=== PATIENT | female | born 2000 | race Caucasian/White ===

== ENCOUNTER 2018-04-07 21:26 | Emergency (ER) | payer OTHER ==
[2018-04-07] MEDS ORDERED: DIPH,PERTUS(ACELL)TETVAC-LF 0.5 ML VIAL IM ONE (21:44)
[2018-04-07] MEDS ORDERED: LIDOCAINE 1% INJ 10MG/ML (20 ML MDV) SQ ONE (21:49)
--- NOTE | 2018-04-07 22:02 | XR ---
EXAMINATION TYPE: XR foot complete LT DATE OF EXAM: 04/07/2018 COMPARISON: NONE HISTORY: Foot pain TECHNIQUE: 3 views FINDINGS: There is mild hallux valgus. I see no fracture nor dislocation. Joint spaces are normal. IMPRESSION: Negative left foot exam.
--- NOTE | 2018-04-07 22:51 | ED ---
General Adult HPI - General Chief complaint: Wound/Laceration Stated complaint: Foot Lac Time Seen by Provider: 04/07/18 21:35 Source: patient, family Mode of arrival: ambulatory Limitations: no limitations - History of Present Illness Initial comments: 17-year-old female since to the emergency department for a chief complaint of laceration of the left foot. Patient states she was carrying bottles and dropped one on her foot. The glass broke and cut the top of her foot. Patient denies pain with walking on the foot. Patient states tetanus is not up-to- date. Patient denies any other injuries or falling. Patient denies any fevers or chills at home.Patient has no other complaints at this time including shortness of breath, chest pain, abdominal pain, nausea or vomiting, headache, or visual changes. - Related Data Home Medications Medication Instructions Recorded Confirmed No Known Home Medications 04/07/18 04/07/18 Allergies Allergy/AdvReac Type Severity Reaction Status Date / Time No Known Allergies Allergy Verified 04/07/18 21:38 Review of Systems ROS Statement: Those systems with pertinent positive or pertinent negative responses have been documented in the HPI. ROS Other: All systems not noted in ROS Statement are negative. Past Medical History Past Medical History: No Reported History History of Any Multi-Drug Resistant Organisms: None Reported Past Surgical History: No Surgical Hx Reported Past Psychological History: No Psychological Hx Reported Smoking Status: Never smoker Past Alcohol Use History: None Reported Past Drug Use History: None Reported General Exam Limitations: no limitations General appearance: alert, in no apparent distress Head exam: Present: atraumatic, normocephalic, normal inspection Eye exam: Present: normal appearance ENT exam: Present: normal exam, mucous membranes moist Neck exam: Present: normal inspection, full ROM. Absent: tenderness, meningismus, lymphadenopathy Respiratory exam: Present: normal lung sounds bilaterally. Absent: respiratory distress, wheezes, rales, rhonchi, stridor Cardiovascular Exam: Present: regular rate, normal rhythm, normal heart sounds. Absent: systolic murmur, diastolic murmur, rubs, gallop, clicks Extremities exam: Present: full ROM (Full range of motion of digits in the left foot. Full range motion of the left ankle.), tenderness (Tenderness to the laceration site.), normal capillary refill (Refill less than 2 seconds and pedal pulse 2+ in the left lower extremity.), other (Sensation intact and left lower extremities. There is a 2 cm laceration extending across the dorsal aspect of the left foot.). Absent: joint swelling (No swelling or ecchymosis or erythema noted in the left lower extremity.), calf tenderness (No calf tenderness. Negative Homans sign.) Course Vital Signs 04/07/18 21:35 Temperature 97 F L Pulse Rate 102 H Respiratory 20 Rate Blood Pressure 143/83 O2 Sat by Pulse 100 Oximetry Procedures - Procedures Initial comment: Body area: left dorsal foot Laceration length: 2 cm Foreign bodies: no foreign bodies Tendon involvement: none Nerve involvement: none Vascular damage: no Anesthesia: local infiltration Local anesthetic: 2 mL 1% lidocaine Preparation: Patient was prepped and draped in the usual sterile fashion. Irrigation solution: saline Irrigation method: saline jet lavage Skin closure:5-0 Ethilon using sterile technique Number of sutures: 6 Technique: interupted Dressing: antibiotic ointment/ gauze Patient tolerance: Patient tolerated the procedure well with no immediate complications. Medical Decision Making - Medical Decision Making 17-year-old female presents to the emergency determine for chief complaint of laceration to the left dorsal foot. Patient dropped a glass on it today. Full range of motion in the foot and digits of the foot. Neurovascular intact. Patient was given tetanus in the emergency department. X-ray shows no acute fracture or dislocation. 6 sutures were applied to the wound. Effort was made to approximate tattoo lines. It was then cleaned and bacitracin and gauze was applied. She was educated on return precautions including those for infection. She will follow up with primary care in 1-2 days and return in 7-10 days to have sutures removed. Disposition Clinical Impression: Laceration Disposition: HOME SELF-CARE Condition: Good Instructions: Care For Your Stitches (ED), Laceration (ED) Additional Instructions: Please monitor for signs infection such as spreading redness, streaking redness , drainage, or fever and return if these occur. Return if you have any other worsening symptoms or additional concerns. Rest ice and elevate the foot. Return in 7-10 days to have sutures removed. Follow up with primary care in 1- 2 days. Is patient prescribed a controlled substance at d/c from ED?: No Referrals: Felix Alvarado MD [Primary Care Provider] - 1-2 days Time of Disposition: :50
[2018-04-07 23:02] VITALS: BP 139/74; PULSE 90; RESP 18; TEMP 98
== END 2018-04-07 23:01 | disposition home or self-care (01) ==
LOC: EC 21:26
DX: S91.312A Laceration without foreign body, left foot, initial encounter (principal); Z23 Encounter for immunization; W25.XXXA Contact with sharp glass, initial encounter; Y93.89 Activity, other specified; Y92.009 Unspecified place in unspecified non-institutional (private) residence as the place of occurrence of the external cause
CPT/HCPCS: 99283; 12001; 90471; 73630; 90715; J2001

== ENCOUNTER 2021-05-09 18:20 | Emergency (ER) | payer OTHER ==
[2021-05-09 18:32] VITALS: BP 119/75; PULSE 83; RESP 16; TEMP 98.2
--- NOTE | 2021-05-09 19:14 | ED ---
Skin/Abscess/FB HPI - General Chief complaint: Skin/Abscess/Foreign Body Stated complaint: ripped off toenail Source: patient, RN notes reviewed Mode of arrival: ambulatory Limitations: no limitations - History of Present Illness Initial comments: 20-year-old white female, alert and oriented 4 and well-appearing since the emergency room after having her right great toenail pulled off last night from the couch. She states that she put some Neosporin and bandage on there. She states that she came to the emergency room to make sure that her toenail will grow back. She denies any pain. There is no active bleeding no signs of infection. She has no pain in the foot or in the great toe. The nail base is pink MD complaint: other (right Great toenail ripped off last night) -: days(s) (1) Tetanus Up to Date: yes Location: R foot Severity scale (1-10): 0 Treatments Prior to Arrival: bandages, other (Neosporin) - Related Data Home Medications Medication Instructions Recorded Confirmed No Known Home Medications 04/07/18 04/07/18 Allergies Allergy/AdvReac Type Severity Reaction Status Date / Time No Known Allergies Allergy Verified 05/09/21 18:29 Review of Systems ROS Statement: Those systems with pertinent positive or pertinent negative responses have been documented in the HPI. ROS Other: All systems not noted in ROS Statement are negative. Past Medical History Past Medical History: No Reported History History of Any Multi-Drug Resistant Organisms: None Reported Past Surgical History: No Surgical Hx Reported Past Psychological History: No Psychological Hx Reported Smoking Status: Never smoker Past Alcohol Use History: Occasional Past Drug Use History: None Reported General Exam Limitations: no limitations General appearance: alert, in no apparent distress Head exam: Present: atraumatic Eye exam: Present: normal appearance, PERRL, EOMI. Absent: scleral icterus, conjunctival injection, periorbital swelling ENT exam: Present: normal exam, mucous membranes moist Neck exam: Present: normal inspection, full ROM. Absent: tenderness, meningismus, lymphadenopathy Respiratory exam: Present: normal lung sounds bilaterally. Absent: respiratory distress, wheezes, rales, rhonchi, stridor Cardiovascular Exam: Present: regular rate, normal rhythm, normal heart sounds. Absent: systolic murmur, diastolic murmur, rubs, gallop, clicks Extremities exam: Present: full ROM. Absent: pedal edema Back exam: Present: full ROM. Absent: tenderness, CVA tenderness (R), CVA tenderness (L), muscle spasm, paraspinal tenderness, vertebral tenderness Neurological exam: Present: alert, oriented X3, CN II-XII intact Psychiatric exam: Present: normal affect, normal mood Skin exam: Present: warm, dry, intact, normal color, other (Nail from right great toe missing). Absent: rash Course Vital Signs 05/09/21 18:29 Temperature 98.2 F Pulse Rate 83 Respiratory 16 Rate Blood Pressure 119/75 O2 Sat by Pulse 98 Oximetry Medical Decision Making - Medical Decision Making Patient's tetanus shot is up-to-date. There is no pain to palpation of the foot or the great toe. The nail bed is pink with no active bleeding. Patient was just concerned if the toe nail would grow back. She will be referred to podiatry as needed. Case discussed with Dr. Mireles. Disposition Clinical Impression: Toenail avulsion Disposition: HOME SELF-CARE Condition: Good Instructions (If sedation given, give patient instructions): Nail Avulsion (ED) Additional Instructions: Keep bacitracin dressing on for the next week until the nail starts to grow back. Follow-up with podiatry as needed. Is patient prescribed a controlled substance at d/c from ED?: No Referrals: Frankie Posey MD [Primary Care Provider] - 1-2 days Juan Jose Snider DPM [STAFF PHYSICIAN] - 1-2 days Time of Disposition: 19:19
== END 2021-05-09 19:37 | disposition home or self-care (01) ==
LOC: EC 18:20
DX: S91.201A Unspecified open wound of right great toe with damage to nail, initial encounter (principal); X58.XXXA Exposure to other specified factors, initial encounter; Y93.89 Activity, other specified
CPT/HCPCS: 99282